=== PATIENT | male | born 1945 | race Caucasian/White ===

== ENCOUNTER 2019-08-12 03:25 | Emergency (ER) | payer MEDICARE, BC ==
--- NOTE | 2019-08-12 03:56 | ER Document Report ---
ED GI/ - General Chief Complaint: Other Stated Complaint: COLOSTOMY BAG BLOCKAGE Time Seen by Provider: 08/12/19 03:43 Primary Care Provider: RIC WEN MD [Primary Care Provider] - Follow up as needed Notes: Patient is a 74-year-old male that comes emergency department for chief complaints about concerns of his colostomy bag not draining correctly and also having abdominal bloating. He denies any particular pain in the abdomen, denies vomiting. He states that he noticed stool at noon but he did not notice any symptoms other than small scant amounts. He denies blood in the stool. He states his back is supposed to be changed today, he actually does have the materials to change the device but he wanted to be checked. He denies history of bowel obstruction. He reports a history of Crohn's requiring surgery leading to the colostomy bag. Patient denies any other complaints including chest pain, fever, flank pain. Past medical history also includes hypertension. Patient lives at home with his , she dropped him off. - Related Data Allergies/Adverse Reactions: No Known Allergies Allergy (Unverified 04/14/12 05:57) Past Medical History - General Information source: Patient - Social History Smoking Status: Never Smoker Frequency of alcohol use: None Lives with: Family Family History: Reviewed & Not Pertinent - Past Medical History Cardiac Medical History: Reports: Hx Hypertension Renal/ Medical History: Reports: Hx Kidney Stones GI Medical History: Reports: Hx Crohn's Disease Past Surgical History: Reports: Hx Colostomy - Immunizations Hx Diphtheria, Pertussis, Tetanus Vaccination: No Review of Systems - Review of Systems Constitutional: No symptoms reported EENT: No symptoms reported Cardiovascular: No symptoms reported Respiratory: No symptoms reported Gastrointestinal: See HPI Genitourinary: No symptoms reported Male Genitourinary: No symptoms reported Musculoskeletal: No symptoms reported Skin: No symptoms reported Hematologic/Lymphatic: No symptoms reported Neurological/Psychological: No symptoms reported Physical Exam - Vital signs Vitals: Temp Pulse Resp BP Pulse Ox 97.4 F 61 20 148/91 H 97 08/12/19 03:31 08/12/19 03:31 08/12/19 03:31 08/12/19 03:31 08/12/19 03:31 - Notes Notes: GENERAL: Alert, interacts well. No acute distress. HEAD: Normocephalic, atraumatic. EYES: Pupils equal, round, and reactive to light. Extraocular movements intact. ENT: Oral mucosa moist, tongue midline. Oropharynx unremarkable. Airway patent. NECK: Full range of motion. Supple. Trachea midline. No lymphadenopathy. LUNGS: Clear to auscultation bilaterally, no wheezes, rales, or rhonchi. No respiratory distress. Non-tender chest wall. HEART: Regular rate and rhythm. No murmur ABDOMEN: Colostomy bag in place in the mid right abdomen, small amount of stool in the bag. There is some mild generalized tenderness to the left side of the abdomen but otherwise abdomen is soft, benign, unremarkable. No guarding. EXTREMITIES: Moves all 4 extremities spontaneously. No edema, normal radial and dorsalis pedis pulses bilaterally. No cyanosis. BACK: no cervical, thoracic, lumbar midline tenderness. No saddle anesthesia, normal distal neurovascular exam. Moves all extremities in full range of motion. NEUROLOGICAL: Alert, oriented to place and some events, very forgetful. Normal speech. Cranial nerves II through XII grossly intact. Strength 5/5 in all extremities. PSYCH: Normal affect, normal mood. SKIN: Warm, dry, normal turgor. No rashes or lesions noted. Course - Re-evaluation Re-evalutation: Patient is actually quite well-appearing. He does have some left-sided abdomin al tenderness. CBC shows mild leukocytosis with elevation of neutrophils. Chemistry unremarkable. Urine shows possible infection with blood. On reevaluation patient has obvious flank pain. Patient denies history of kidney stone. Patient was given 2 mg morphine and [address] was performed. CT shows 4 mm left-sided ureterolithiasis with some hydronephrosis. There is also small bowel ileus. No other acute findings. However on reevaluation patient noted to be moving stool into his colostomy bag. Patient has no symptoms on reevaluation. He has no vomiting. Based on his benign abdomen, lack of vomiting, and now moving stool I have a low suspicion of obstruction. Patient is very insistent that he is ready to be discharged. However he did agree that he wants to follow-up with [facility] urology and he will wait for the phone call. Patient was given Rocephin during this time. Urine culture was placed. I spoke with Dr. Wan, urologist at [facility]. He states patient can follow-up, he gives the phone number to call, patient is to be given strict return precautions. I discussed this with patient, I called and spoke with patient's Yoli who is waiting in the car. They both state appreciation, understanding and agreement with plan. Stable and well-appearing at time of discharge with no complaints. - Vital Signs Vital signs: Temp Pulse Resp BP Pulse Ox 97.4 F 61 20 148/91 H 97 08/12/19 04:06 08/12/19 03:31 08/12/19 03:31 08/12/19 03:31 08/12/19 03:31 - Laboratory Result Diagrams: 08/12/19 04:00 08/12/19 04:00 Laboratory results interpreted by me: 08/12/19 08/12/19 08/12/19 03:40 04:00 04:00 WBC 13.4 H Seg Neuts % (Manual) 91 H Band Neutrophils % 1 L Lymphocytes % (Manual) 3 L Abs Neuts (Manual) 12.3 H Abs Lymphs (Manual) 0.4 L Sodium 134.7 L BUN 21 H Glucose 129 H Urine Blood MODERATE H Ur Leukocyte Esterase SMALL H Urine Ascorbic Acid 40 H Discharge - Discharge Clinical Impression: Flank pain, Ureterolithiasis Abdominal pain Qualifiers: Abdominal location: generalized Qualified Code(s): R10.84 - Generalized abdominal pain Condition: Stable Disposition: HOME, SELF-CARE Additional Instructions: You are passing a 4 mm stone from your kidney on the left side. Take Flomax to help pass the stone, take Keflex antibiotics to avoid infection of the stone, take the [place] if needed for pain, take Zofran if needed for nausea. If you do take the [place] for pain make sure you take the MiraLAX to avoid constipation. I spoke with Dr. Wan, urologist with [facility]. Please follow-up with Center urology at [phone]. Call today to set up your appointment, please asked to be seen in the [place] office. Return to the emergency department if you worsen including severe pain, vomiting, fever/chills, or any other concerning or worsening symptoms. Prescriptions: Tamsulosin HCl [Flomax 0.4 mg Cap.sr] 0.4 mg PO DAILY #7 cap.sr.24h Cephalexin Monohydrate [Keflex 500 mg Capsule] 500 mg PO BID 7 Days #14 capsule Polyethylene Glycol 3350 [Miralax Powder 17 gm/Packet] 1 packet PO DAILY PRN #1 pkg PRN Reason: Hydrocodone/Acetaminophen [[place] 5-325 mg Tablet] 0.5 - 1 tab PO ASDIR PRN #12 tablet PRN Reason: Ondansetron [Zofran Odt 4 mg Tablet] 1 - 2 tab PO Q4H PRN #15 tab.rapdis PRN Reason: For Nausea/Vomiting
[2019-08-12 04:26] LABS: APPEARANCE,URINE CLEAR; BILIRUBIN,URINE NEGATIVE (NEGATIVE); COLOR,URINE YELLOW; GLUCOSE, URINE NEGATIVE (NEGATIVE); KETONES,URINE NEGATIVE (NEGATIVE); LEUKOCYTE ESTERASE,URINE SMALL (NEGATIVE); NITRITE,URINE NEGATIVE (NEGATIVE); PROTEIN,URINE NEGATIVE (NEGATIVE); URINE SPECIFIC GRAVITY 1.015; UROBILINOGEN,URINE NEGATIVE mg/dL (<2.0)
[2019-08-12 04:26] LABS: HEMATOCRIT 46.7 % (37.9-51.0); HEMOGLOBIN 16.4 g/dL (13.5-17.0); MEAN CORPUSCULAR HEMOGLOBIN 32.5 pg (27.0-33.4); MEAN CORPUSCULAR HGB CONC 35.1 g/dL (32.0-36.0); MEAN CORPUSCULAR VOLUME 93 fl (80-97); PLATELET COUNT 287 10^3/uL (150-450); RED BLOOD COUNT 5.04 10^6/uL (4.35-5.55); RED CELL DISTRIBUTION WIDTH 13.3 % (11.5-14.0); WHITE BLOOD COUNT 13.4 10^3/uL (4.0-10.5)
[2019-08-12 04:29] LABS: ALBUMIN 4.6 g/dL (3.5-5.0); ALKALINE PHOSPHATASE 78 U/L (38-126); ANION GAP 10 (5-19); ASPARTATE AMINO TRANSFERASE 32 U/L (17-59); BILIRUBIN,TOTAL 0.6 mg/dL (0.2-1.3); BLOOD UREA NITROGEN 21 mg/dL (7-20); CALCIUM 9.7 mg/dL (8.4-10.2); CARBON DIOXIDE 27 mmol/L (22-30); CHLORIDE 98 mmol/L (98-107); GLUCOSE 129 mg/dL (75-110); POTASSIUM 3.9 mmol/L (3.6-5.0); TOTAL PROTEIN 7.8 g/dL (6.3-8.2)
[2019-08-12 04:49] LABS: ABSOLUTE LYMPHOCYTES# (MANUAL) 0.4 10^3/uL (0.5-4.7); ABSOLUTE MONOCYTES # (MANUAL) 0.5 10^3/uL (0.1-1.4); BAND NEUTROPHILS % (MANUAL) 1 % (3-5); BASOPHILS % (MANUAL) 1 % (0-2); EOSINOPHILS % (MANUAL) 0 % (0-6); LYMPHOCYTES % (MANUAL) 3 % (13-45); MONOCYTES % (MANUAL) 4 % (3-13); SEGMENTED NEUTROPHILS % (MAN) 91 % (42-78); TOTAL CELLS COUNTED 100
[2019-08-12 04:51] LABS: PLATELET COMMENT ADEQUATE; TEAR DROP CELLS SLIGHT; TOXIC GRANULATION SLIGHT
[2019-08-12] MEDS ORDERED: MORPHINE SULFATE 10 MG/ML INJ IV ONE (05:16)
--- NOTE | 2019-08-12 05:16 | RADIOLOGY REPORT (SQ) ---
Acute abdominal series on 08/12/2019 at 4:51 AM CLINICAL INDICATION: Abdominal swelling, history of colostomy, question bowel obstruction COMPARISON: 04/14/2012 FINDINGS: CHEST: Mildly tortuous aorta is noted. The lungs are clear. Cardiac, hilar and mediastinal contours are within normal limits. Pulmonary vascularity is within normal limits. ABDOMEN: There is no free air. Bowel gas pattern is nonspecific. No increased stool to suggest constipation is noted. A few calcifications in the left pelvis are consistent with phleboliths. No other abnormal calcification or mass effect is noted. Degenerative changes are noted in the spine. IMPRESSION: 1. No acute cardiopulmonary disease. 2. Nonspecific abdomen.
[2019-08-12] MEDS ORDERED: ONDANSETRON HCL INJ/PF 4 MG/2 ML SDV IV ONE (05:17)
--- NOTE | 2019-08-12 06:43 | RADIOLOGY REPORT (SQ) ---
EXAM DESCRIPTION: CT ABDOMEN PELVIS WITH IV CONTRAST COMPLETED DATE/TME: 08/12/2019 05:16 CLINICAL HISTORY: 74 years Male, c/o colostomy bag ?no output? abd swelling/pain,leukocytosis. CREAT 1.09 Comparison: None. Technique: IV contrast. Coronal and sagittal reformat. This exam was performed according to our departmental dose-optimization program, which includes automated exposure control, adjustment of the mA and/or kV according to patient size and/or use of iterative reconstruction technique. [facility]: Dose Right [facility]: CareDose [facility]: Dose Right [facility]: Teradose 4D [facility]: [employer] LIMITATIONS: None Findings: 0.4 cm left mid ureteral stone at the level of the L5 vertebral body with mild left hydroureter and moderate left hydronephrosis. Moderate left perinephric fluid. 2.6 cm diameter dilated small bowel includes air-fluid levels indicative of ileus or low-grade obstruction. Transition zone is not identified. Colonic stool retention Degenerative disc disease. Coronary arterial calcification. Atherosclerotic vascular disease. Small hiatal hernia. Likely benign renal cyst(s), not definitively characterized. Colostomy at the right paracentral mid abdominal wall. Small bilateral inguinal fat only hernia. 4.5 cm prostate. [id number] degenerative disc disease. Mild posterior L5 vertebral height loss. No ascites. No pneumoperitoneum. No evidence of appendicitis. Appendix not definitively discerned/appendectomy. No gross evidence of gallbladder inflammation, hepatobiliary obstruction, or portal vein defect. No evidence of abdominal aortic aneurysm. Inferior thorax, liver, gallbladder, pancreas, spleen, adrenals, renal system, gastrointestinal tract, pelvic organs, lymphatics, vasculature, and musculoskeleton appear otherwise unremarkable. IMPRESSION: 1. 0.4 cm left mid ureteral stone with moderate grade obstruction. 2. Small bowel ileus. Differential diagnosis includes low-grade obstruction. 3. Small hiatal hernia. Colostomy.
[2019-08-12] MEDS ORDERED: CEFTRIAXONE 1 GM/D5W RTU 1 GM/50 ML RTUPB IV ONE (06:45)
[2019-08-12 07:02] VITALS: BP 140/76
== END 2019-08-12 07:30 | disposition home or self-care (01) ==
LOC: ER 03:25
DX: N20.1 Calculus of ureter (principal); R10.84 Generalized abdominal pain; R14.0 Abdominal distension (gaseous); I10 Essential (primary) hypertension; Z43.3 Encounter for attention to colostomy; Z87.442 Personal history of urinary calculi
CPT/HCPCS: 99284; 96375; 96365; 36415; 87086; 83690; 85025; 80053; 81001; 74022; 74177; J2270; J2405; J0696